=== PATIENT | female | born 1990 | race Caucasian/White ===

== ENCOUNTER → 2016-06-04 | Outpatient (CLI) | payer OTHER ==
--- NOTE | 2016-06-04 15:04 | RAD ---
Right breast ultrasound, 06/04/2016: History: Lump The area of patient concern at the 1:00 location was carefully scanned. The firm structure which the patient points to at this level corresponds to costochondral cartilage at the rib end. The overlying breast tissues are heterogeneous. No cystic or solid breast mass is seen. IMPRESSION: The targeted ultrasound exam of the right breast reveals no breast abnormality. Clinical surveillance is suggested.
== END | disposition home or self-care (01) ==
LOC: US 14:15
PROVIDERS: ATTEND Obstetrics & Gynecology
DX: N63 Unspecified lump in breast (principal)
CPT/HCPCS: 76641